=== PATIENT | male | born 1945 | race African-American/Black ===

== ENCOUNTER 2019-05-21 12:40 | Inpatient (IN) | payer OTHER ==
[~2019-05-21] VITALS: Ht 172.7 cm; Wt 54.0 kg
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
[2019-05-21 12:41] VITALS: BP 136/82
[2019-05-21] MEDS ORDERED: TYLENOL325 MG PO (12:51)
[2019-05-21] MEDS ORDERED: LIPITOR40 MG PO (12:54)
[2019-05-21] MEDS ORDERED: ASPIR 8181 M1 PO (12:54)
[2019-05-21] MEDS ORDERED: LORCET 5-325 M1 EACH PO (12:55)
[2019-05-21] MEDS ORDERED: CARAFATE1 GM/10 ML PO (12:55)
[2019-05-21] MEDS ORDERED: CARVEDILOL12.5 MG PO (12:55)
[2019-05-21] MEDS ORDERED: UNICOMPLEX M TA1 TA1 PO (12:56)
[2019-05-21] MEDS ORDERED: NIFEDIPINE ER30 M1 PO (12:58)
[2019-05-21] MEDS ORDERED: MIRALAX119 GM PO (12:59)
[2019-05-21] MEDS ORDERED: RENVELA0.8 GM PO (12:59)
[2019-05-21] MEDS ORDERED: ROBITUSSIN15 MG/5 ML PO (13:01)
[2019-05-21] MEDS ORDERED: SENNA PLUS 8.61 EACH PO (13:02)
[2019-05-21 13:12] LABS: ABSOLUTE NEUTROPHILS 9.2 thou/uL (1.4-8.2); BASOPHILS 1.5 % (0.0-2.0); EOSINOPHILS 3.8 % (0.0-3.0); HEMATOCRIT 34.9 % (42.0-52.0); HEMOGLOBIN 11.2 gm/dL (14.0-18.0); LYMPHOCYTES 6.8 % (24.0-44.0); MCH 29.4 pg (26.0-34.0); MCHC 32.2 g/dL (28.0-37.0); MCV 91.3 fL (80.0-100.0); MONOCYTES 6.7 % (1.0-8.0); PLATELET COUNT 207 thou/uL (150-400); POLYS 81.2 % (36.0-66.0); RBC 3.82 mil/uL (4.50-6.00); RDW 19.5 % (10.5-14.5); WBC 11.3 thou/uL (4.0-11.0)
[2019-05-21 14:32] LABS: CALCIUM 9.2 mg/dL (8.5-10.1); CREATININE 9.2 mg/dL (0.7-1.3); POTASSIUM 3.8 mmol/L (3.5-5.1)
[2019-05-21 14:44] LABS: ALBUMIN 3.2 g/dL (3.4-5.0); MAGNESIUM 1.7 mg/dL (1.8-2.4); TOTAL BILIRUBIN 0.6 mg/dL (<0.1-1.0); TOTAL PROTEIN 7.6 g/dL (6.4-8.2); TROPONIN-I 0.08 ng/mL (<0.06)
[2019-05-21 15:18] LABS: URINE BILIRUBIN NEGATIVE (Negative); URINE BLOOD 1+ (Negative); URINE CLARITY CLEAR; URINE COLOR YELLOW; URINE GLUCOSE-RANDOM* TRACE (Negative); URINE KETONES NEGATIVE (Negative); URINE LEUKOCYTES-REFLEX NEGATIVE (Negative); URINE NITRITE-REFLEX NEGATIVE (Negative); URINE PROTEIN (DIPSTICK) 2+ (Negative); URINE UROBILINOGEN 0.2 E.U./dl (0.2-1.0)
[2019-05-21 15:22] LABS: ANISOCYTOSIS 2+
[2019-05-21 15:23] LABS: TARGET CELLS FEW
[2019-05-21 15:29] LABS: BACTERIA-REFLEX None Seen /HPF (None Seen); CASTS None Seen /LPF (None Seen); CRYSTALS None Seen /LPF (None Seen); SQUAMOUS 4-10 Moderate /LPF (0-3); URINE RBC 3-10 Few /HPF (0-2); URINE WBC-REFLEX 0-5 Rare /HPF (0-5)
[2019-05-21 15:30] LABS: RENAL EPITHELIAL CELLS 4-10 Moderate /LPF (None Seen); TRANSITIONAL EPITHEL CELL 4-10 Moderate /LPF (None Seen)
[2019-05-21 16:13] VITALS: BP 126/83
[2019-05-21 16:15] LABS: ALBUMIN 3.3 g/dL (3.4-5.0); TOTAL PROTEIN 7.8 g/dL (6.4-8.2); TROPONIN-I 0.08 ng/mL (<0.06)
[2019-05-21 16:27] VITALS: BP 126/83
[2019-05-21 16:38] LABS: TSH 3.851 uIU/mL (0.358-3.740)
[2019-05-21 16:49] VITALS: BP 164/94
--- NOTE | 2019-05-21 18:35 | NUR ---
ASSUMED CARE AT 1700, SHIFT ASSESMENT DONE, MEDS GIVEN, VSS. DENIES PAIN, NAUSEA, VOMITING. ADMISSION DONE, VSS. BP MEDS GIVEN. NSR ON TELE, ON 2L NC. CONSULTS CALLED, WILL CONTINUE TO ASSESS AND ASSIST WITH ADLs NEEDED.
[2019-05-21 19:47] VITALS: BP 157/86
--- NOTE | 2019-05-22 | NUR ---
PT AWAKE RESTING QUIETLY DENIES PAIN NOR DISCOMFORT. LEFT RADIAL DIALYSIS SHUNT. SLEEPINBG AT INTERVALS.
[2019-05-22 05:02] VITALS: BP 191/111
--- NOTE | 2019-05-22 05:45 | NUR ---
SBP 192/111 AUTOMATION ENGINEERING MANAGER Madelin JIMENEZ NOTIFIED LEFT ORDERS TO GIVE AM DOSES OF CORAG AND NIFEDIPINE EARLY. WILL CONT TO MONITOR.
--- NOTE | 2019-05-22 05:47 | NUR ---
SBP 212/111 AUTOCAD DESIGNER VALARIE NOTIFIED. LEFT ORDERS TO GIVE AM DOSES OF NIFEDIPINE AND CORAG EARLY. WILL CONT TO MONITOR
--- NOTE | 2019-05-22 07:00 | NUR ---
SBP 216/117 ROLLS BAKER NOTIFIED AND LEFT ORDERS FOR HYDRALZINE 10 MG IV NOW WILL CONT TO MONITOR. S/C FOR HEMODIALYSIS TODAY. ANURIC. DENIES PAIN NOR SOA. WILL CONT TO MONITOR.
--- NOTE | 2019-05-22 07:51 | EKG ---
[address] [place] [address] ELECTROCARDIOGRAM REPORT Name: RUTHY KISER Room #: 218-P ADM IN M.R.#: [id number] Admission: 05/21/19 Attend Phys: Osvaldo Talbert MD Discharge: Date of : 47 Report #: [id number] THIS REPORT FOR: //name// [facility] ED Test Date: 2019-05-21 Test Time: 12:53:16 Pat Name: RUTHY KISER Department: Room: 218 Gender: M Supervisor Data Processing: [facility] : 1945 Requested By: Nadine Pichardo Order Number: [id number] MD: Mic Munguia Measurements Intervals [place] Rate: 76 P: 11 OK: 122 QRS: 14 QRSD: 78 T: 169 QT: 443 QTc: 499 Interpretive Statements Sinus rhythm Abnormal T, consider ischemia, lateral leads No previous ECG available for comparison Electronically Signed On 05-22-2019 7:51:33 PLATFORM MATERIAL HANDLING SUPERVISOR by Mic Munguia [email or web address] <ELECTRONICALLY SIGNED> By: Mic Munguia MD, [facility] 05/22/19 [id number] Mic Munguia MD, FACC /EPI
[2019-05-22 08:27] VITALS: BP 207/119
--- NOTE | 2019-05-22 09:23 | 2DMMODE ---
[facility] [place] [address] 2 D/M-MODE ECHOCARDIOGRAM Name: RUTHY KISER Room #: 218-P [facility] IN ..#: [id number] Admission: 05/21/19 Attend Phys: Osvaldo Talbert, Discharge: Date of : 47 Report #: [id number] THIS REPORT FOR: //name// APPROVED REPORT Study performed: 05/22/2019 08:37:55 EXAM: Comprehensive 2D, Doppler, and color-flow Echocardiogram Patient Location: Bedside Room #: 218 Status: routine BSA: 1.76 HR: 98 bpm BP: 216/117 mmHg Rhythm: NSR Other Information Study Quality: Good/unable to position patient due to dialysis. Indications Syncope, elevated troponin. Hx: [place], cardiac arrest, CHF, HTN, ESRD. 2D Dimensions RVDd: 37.73 mm IVSd: 13.00 (7-11mm) LVOT Diam: 18.92 (18-24mm) LVDd: 44.00 mm PWd: 14.08 (7-11mm) Ascending Ao: 30.27 (22-36mm) LVDs: 34.79 (25-40mm) Aortic Root: 31.54 mm Volumes Left Atrial Volume (Systole) Single Plane 4CH: 84.28 mL Single Plane 2CH: 77.73 mL LA ESV Index: 49.00 mL/m2 Aortic Valve AoV Peak Kemar.: 1.77 m/s AO Peak Gr.: 12.53 mmHg LVOT Max P.35 mmHg LVOT Max V: 1.26 m/s PANCHO Vmax: 2.00 cm2 Mitral Valve E/A Ratio: 1.1 [facility] [place] [address] 2 D/M-MODE ECHOCARDIOGRAM Name: RUTHY KISER Room #: 218-[facility] IN [facility]#: [id number] Admission: 05/21/19 Attend Phys: Osvaldo Talbert, Discharge: Date of : 47 Report #: [id number] MV Decel. Time: 158.97 ms MV E Max Kemar.: 1.31 m/s MV A Kemar.: 1.15 m/s MV PHT: 46.10 ms IVRT: 96.89 ms Pulmonary Valve PV Peak Kemar.: 0.94 m/s PV Peak Gr.: 3.53 mmHg Pulmonary Vein P Vein S: 0.62 m/s P Vein A: 0.30 m/s P Vein D: 0.48 m/s P Vein A Dur.: 103.8 msec P Vein S/D Ratio: 1.29 Tricuspid Valve TR Peak Kemar.: 3.54 m/s RAP Estimate: 5.00 mmHg TR Peak Gr.: 50.26 mmHg PA Pressure: 55.00 mmHg Left Ventricle The left ventricle is normal size. Regional wall motion abnormalities are noted. Moderate concentric left ventricular hypertrophy. Left ventricular systolic function is mildly decreased. LVEF is 45-50%. Moderate diastolic dysfunction is present (pseudonormal filling). Right Ventricle The right ventricle is normal size. The right ventricular systolic function is normal. Atria Left atrium is moderately dilated. The right atrium size is normal. Aortic Valve The aortic valve is normal in structure; mildly thickened and calcified. No aortic regurgitation is present. There is no aortic valvular stenosis. Mitral Valve The mitral valve is normal in structure. Leaflets are mildly thickened. Mild to moderate mitral regurgitation. No evidence of mitral valve stenosis. Tricuspid Valve The tricuspid valve is normal in structure. Trace to [place] [address] 2 D/M-MODE ECHOCARDIOGRAM Name: RUTHY KISER Room #: 218-P [facility] IN ..#: [id number] Admission: 05/21/19 Attend Phys: Osvaldo Talbert, Discharge: Date of : 47 Report #: [id number] regurgitation. Estimated PAP is 55mmHg. Pulmonic Valve The pulmonary valve is normal in structure. Mild pulmonic regurgitation. Great Vessels The aortic root is normal in size. The ascending aorta is normal in size. IVC is normal in size and collapses >50% with inspiration. Pericardium There is no pericardial effusion. <Conclusion> The left ventricle is normal size. Moderate concentric left ventricular hypertrophy. Left ventricular systolic function is mildly decreased. LVEF is 45-50%. Moderate diastolic dysfunction is present (pseudonormal filling). The right ventricle is normal size. Left atrium is moderately dilated. The aortic valve is normal in structure; mildly thickened and calcified. Mild to moderate mitral regurgitation. Trace to mild tricuspid regurgitation. Estimated PAP is 55mmHg. <ELECTRONICALLY SIGNED> By: Petey Sargent MD 05/22/19922 2 2 Petey Sargent MD /INF
--- NOTE | 2019-05-22 09:38 | NUR ---
INITIAL ASSESSMENT: Pt evaluated for d/c planning needs. Reviewed chart and spoke with credentialing coordinator at facility. Pt is a continuous churn buttermaker care resident at [facility] and has dialysis M-W-F at [facility]. Pt uses cane for w/c for ambulation. Pt is normally alert and oriented to self and place. Plan is for pt to return to [facility] on d/c from hospital. Will remain available to assist as needed.
--- NOTE | 2019-05-22 13:03 | NUR ---
FAXED CLINICAL UPDATE TO [facility] RECEIVED CONFIRMATION AND SPOKE WITH CARMEN IN ADM. DP TO FOLLOW.
[2019-05-22 15:58] LABS: HEMATOCRIT 34.8 % (42.0-52.0); HEMOGLOBIN 11.2 gm/dL (14.0-18.0); MCH 29.5 pg (26.0-34.0); MCHC 32.3 g/dL (28.0-37.0); MCV 91.4 fL (80.0-100.0); RBC 3.81 mil/uL (4.50-6.00); RDW 18.9 % (10.5-14.5); WBC 8.5 thou/uL (4.0-11.0)
[2019-05-22 16:00] VITALS: BP 145/70
[2019-05-22 16:31] LABS: CALCIUM 9.1 mg/dL (8.5-10.1); MAGNESIUM 1.8 mg/dL (1.8-2.4); POTASSIUM 3.2 mmol/L (3.5-5.1); TROPONIN-I 0.06 ng/mL (<0.06)
[2019-05-22 16:32] LABS: CREATININE 5.1 mg/dL (0.7-1.3)
[2019-05-22 20:17] VITALS: BP 169/117
[2019-05-23] VITALS (8 sets, daily range): BP systolic 122–190; BP diastolic 64–111
--- NOTE | 2019-05-23 04:45 | NUR ---
ASSUMED PT CARE AT 1900. PT IS ALERT AND ORIENTED. SON AT BEDSIDE. NO SIGN OF DISTRESS NOTED IN PT. PT IS LAYING COMFORTABLE IN BED. FALL PPRECAUTION IN PLACE. ASSESSMENT COMPLETED AND DOCUMENTED. ELEVATED BLOOD PRESSURE NOTED ON VITAL SIGNS. PT IS STABLE. SCHEDULED MEDS ADMINISTERED TO PT. PT TOLERATED PO INTAKE. CONTINUE TO MONITOR. DENIES ANY NEEDS AT THIS TIME.
--- NOTE | 2019-05-23 13:20 | NUR ---
Spoke with [facility] admissions. Facility wants to cont therapy believe patient would benefit from therapy paulo as he has a pass often to home. Plan fax updated information.
--- NOTE | 2019-05-23 16:28 | NUR ---
FAXED REFERRAL TO [facility] FOR SKILLED STAY. SPOKE WITH CARMEN IN ADM SHE RECEIVED REFERRAL AND WILL SUBMIT FOR AUTH. DP TO FOLLOW.
--- NOTE | 2019-05-23 16:38 | NUR ---
ASSUMMED PT CARE AT APPROXIMATELY 0700. PT A&O X4. ASSESMENT CHARTED. FALL PRECAUTIONS IN PLACE. PT DENIES HAVING CHEST PAIN. PT DENIES HAVING SOB. PT DENIES HAVING ACUTE PAIN. PT AND PT'S FAMILY EDUCATED ABOUT POC. PT AND PT'S FAMILY STATED UNDERSTANDING AND DENIED HAVING FURTHER QUESTIONS. PT STATED HE WAS NAUSEATED. PT RECEIVED ANTI-EMETICS. PT STATED HIS NAUSEA WAS RELEIVED. DR NOTIFIED OF PT HAVING A LOW GRADE FEVER. DR STATED TO CONTINUE TO MONITOR. NOTIFIED DR OF LOW K+ LEVEL. DR STATED TO CONTINUE TO MONITOR. VITAL SIGNS STABLE. PT COMFORTABLE IN BED. PT DENIES HAVING FURTHER CONCERNS.
--- NOTE | 2019-05-24 04:27 | NUR ---
ASSUMED PT CARE AT 1900. PT IS AWAKE. NO SIGN OF DISTRESS NOTED IN PT. NO FAMILY AT BEDSIDE. FALL PRECAUTION IN PLACE. ASSESSMENT COMPLETED AND DOCUMENTED. VITAL SIGNS STABLE. SCHEDULED MEDS ADMINISTERED TO PT. DENIES ANY PAIN. NO FURTHER NEEDS REQUESTED AT THIS TIME. CONTINUE TO MONITOR.
[2019-05-24 04:45] VITALS: BP 148/83
[2019-05-24 08:01] VITALS: BP 162/85
--- NOTE | 2019-05-24 10:17 | NUR ---
ORIENTED TO SELF AND PLACE. CALM, COOPERATIVE. DIALYSIS UNDERWAY. HOLDING A.M. MEDS PENDING DIALYSIS COMPLETION. SR PER TELE. FALL PRECAUTIONS IN PLACE. A.M. MEDS HELD PENDING DIALYSIS COMPLETION. WILL CONTINUE TO FOLLOW CLOSELY.
[2019-05-24 16:21] VITALS: BP 162/85
--- NOTE | 2019-05-24 16:32 | NUR ---
Spoke with admissions at [facility]. They have rec'd ins auth for snf stay and can accept the pt today. The attending and nursing notified. [facility] does not have a w/c feeder driver today. W/c van arranged through [facility] for 5:30-6pm pickup. Unit notified along with the pt. Dc marketing planner called his son Chris and he will meet him out there. Pt to resume his normally dialysis schedule. Dc marketing planner faxed the summary and instructions to admissions. Chart copy in progress to be sent with the pt. Nursing to call report. Pt to be skilled for therapy.
== END 2019-05-24 17:11 | DRG 291 ==
LOC: ER 12:40 → 2N 16:09
PROVIDERS: Nurse Practitioner Family; ADMIT Internal Medicine
PROC: 5A1D70Z Performance of Urinary Filtration, Intermittent, Less than 6 Hours Per Day (ICD-10-PCS; principal; 2019-05-24)
DX: I13.2 Hypertensive heart and chronic kidney disease with heart failure and with stage 5 chronic kidney disease, or end stage renal disease (principal); N18.6 End stage renal disease; I50.43 Acute on chronic combined systolic (congestive) and diastolic (congestive) heart failure; I16.0 Hypertensive urgency; I25.10 Atherosclerotic heart disease of native coronary artery without angina pectoris; E78.5 Hyperlipidemia, unspecified; I25.5 Ischemic cardiomyopathy; R00.1 Bradycardia, unspecified; E07.81 Sick-euthyroid syndrome; K59.09 Other constipation; I25.2 Old myocardial infarction; Z79.82 Long term (current) use of aspirin; Z79.899 Other long term (current) drug therapy; Z95.5 Presence of coronary angioplasty implant and graft; Z91.15 Patient's noncompliance with renal dialysis
CPT/HCPCS: 10081; 32100

== ENCOUNTER 2019-06-19 10:30 | Inpatient (IN) | payer OTHER ==
[2019-06-19] VITALS (54 sets, daily range): BP systolic 75–235; BP diastolic 48–150
[~2019-06-19] VITALS: Ht 170.2 cm; Wt 44.5 kg
[~2019-06-19 10:30] MED LIST: ASPIR 8181 M1 PO; CARAFATE1 GM/10 ML PO; CARVEDILOL12.5 MG PO; LIPITOR40 MG PO; LORCET 5-325 M1 EACH PO; MIRALAX119 GM PO; NIFEDIPINE ER30 M1 PO; RENVELA0.8 GM PO; ROBITUSSIN15 MG/5 ML PO; SENNA PLUS 8.61 EACH PO; TYLENOL325 MG PO; UNICOMPLEX M TA1 TA1 PO
[2019-06-19 11:16] LABS: ABSOLUTE NEUTROPHILS 10.2 thou/uL (1.4-8.2); BASOPHILS 0.7 % (0.0-2.0); EOSINOPHILS 0.1 % (0.0-3.0); HEMATOCRIT 43.7 % (42.0-52.0); MCH 30.5 pg (26.0-34.0); MCV 95.4 fL (80.0-100.0); PLATELET COUNT 180 thou/uL (150-400); POLYS 88.2 % (36.0-66.0); RBC 4.58 mil/uL (4.50-6.00); WBC 11.6 thou/uL (4.0-11.0)
[2019-06-19 12:09] LABS: CALCIUM 10.4 mg/dL (8.5-10.1); CREATININE 11.7 mg/dL (0.7-1.3)
[2019-06-19 12:17] LABS: POTASSIUM 6.1 mmol/L (3.5-5.1)
[2019-06-19 12:22] LABS: ANISOCYTOSIS 1+; PLATELET ESTIMATE NORMAL
[2019-06-19 15:03] LABS: BE(vivo) -5.5 mmol/L (-2 to +3); HCO3 17.9 mmol/L (22.0-26.0); PCO2 28.9 mmHg (35.0-45.0); PO2 69.4 mmHg (80.0-100.0); pH 7.409 (7.360-7.450); sO2 94.4 % (92.0-98.0)
--- NOTE | 2019-06-19 17:06 | NUR ---
PT ARRIVED FROM ER AT 1535. PT WAS ON NC AND WAS VERY TACHYPNEIC UPON ARRIVAL TO ICU WITH R >40. PT'S HR WAS 120'S ON ARRIVAL AND B/P WAS >200 SYSTOLIC. PT WAS IMMEDIATELY PLACED ON BIPAP. PT IS VERY AGITATED ON BIPAP ON PULLING CONSTANTLY AT MASK. ORDERS RECIEVED FOR BILAT SOFT WRIST RESTRAINTS. DIALYSIS NURSE AT BEDSIDE AND UNABLE TO START DIALYSIS DUE TO AGITAION. DIALYSIS STARTED AT 1545 AND AT 1602 1 MG IV ATIVAN GIVEN PER DR ORDER. PT CONTINUED TO BREATH >40 BREATHS PER MINUTE AND O2 SAT DROPPED FROM 94% TO 60-70%. DR CALLED AND PULMONARY PHYSICIAN STAT CONSULTED AND PAGED, BIPAP FIO2 INCREASED TO 100%. HOSPITALIST CALLED AND ORDER RECEIVED FROM 5MG IV LOPRESSOR. PULMONARY PHYSICIAN ROUNDED BEDSIDE ON PT AND STATED DUE TO PT'S HISTORY OF BLOOD PRESSURE RAPIDLY DROPPING DURING DIALYSIS TO HOLD ON GIVING IV LOPRESSOR UNTIL WE SEE HOW THE PATIENT WILL RESPOND TO DIALYSIS. PT'S SPO2 96% ON BIPAP WITH FIO2 100%. PT STARTED TO BECOME ANXIOUS AND AGITATED AGAIN AND DIALYSIS NURSE STATED HE NEEDS MORE ATIVAN BECAUSE HE IS BEGINNING TO PULL AT MASK AND WILL NOT KEEP L DIALYSIS ARM STRAIGHT. PULMONARY PHYSICIAN ROUNDED AGAIN ON PT AND STATED PT NEEDS TO BE INTUBATED.
[2019-06-19 19:35] LABS: BE(vivo) -1.4 mmol/L (-2 to +3); HCO3 21.6 mmol/L (22.0-26.0); PCO2 31.4 mmHg (35.0-45.0); PO2 103.9 mmHg (80.0-100.0); pH 7.455 (7.360-7.450); sO2 98.1 % (92.0-98.0)
--- NOTE | 2019-06-19 19:58 | NUR ---
CHEST XRAY RESULT POST RIJ CATHETER PLACEMENT RESULTED IN CATHETER TIP IN [facility]. CATHETER PULLED BACK POST CHEST XRAY 2.5 CM WITH INTERNAL NOW 17 CM. RELEASE FOR USE PER PROTOCOL.
[2019-06-20] VITALS (52 sets, daily range): BP systolic 67–128; BP diastolic 33–79
[2019-06-20 04:59] LABS: BE(vivo) -1.6 mmol/L (-2 to +3); HCO3 22.6 mmol/L (22.0-26.0); PCO2 36.2 mmHg (35.0-45.0); PO2 127.6 mmHg (80.0-100.0); pH 7.413 (7.360-7.450); sO2 98.6 % (92.0-98.0)
[2019-06-20 05:10] LABS: ABSOLUTE NEUTROPHILS 10.7 thou/uL (1.4-8.2); BASOPHILS 0.4 % (0.0-2.0); HEMATOCRIT 35.9 % (42.0-52.0); LYMPHOCYTES 2.3 % (24.0-44.0); MCH 30.6 pg (26.0-34.0); MCV 95.5 fL (80.0-100.0); MONOCYTES 5.5 % (1.0-8.0); PLATELET COUNT 119 thou/uL (150-400); POLYS 91.8 % (36.0-66.0); RBC 3.76 mil/uL (4.50-6.00); WBC 11.7 thou/uL (4.0-11.0)
[2019-06-20 05:18] LABS: HEMOGLOBIN 11.5 gm/dL (14.0-18.0)
[2019-06-20 05:19] LABS: CALCIUM 9.5 mg/dL (8.5-10.1); MAGNESIUM 1.6 mg/dL (1.8-2.4)
[2019-06-20 05:31] LABS: CREATININE 9.8 mg/dL (0.7-1.3); POTASSIUM 4.2 mmol/L (3.5-5.1)
--- NOTE | 2019-06-20 06:34 | NUR ---
PATIENT ON MODERATE SEDATION, VENTILATOR 65% FIO2, 100% O2 SAT. PROPOFOL WEANED TO 30 MCG/KG/HR. ROCHA AND OG TUBE INSERTED. PATIENT COMPLETED DIALYSIS OVER NIGHT WHERE 4 LITERS WERE TAKEN OFF. THERE WAS A 5 POUND WEIGHT DECRESE FROM ADMISSION. PLAN OF CARE DISCUSSED WITH SON, VERBALIZED UNDERSTANDING. NO SIGN OF ACUTE DISTRESS NOTED AT THIS TIME. WILL CONTINUE TO MONITOR.
--- NOTE | 2019-06-20 08:27 | EKG ---
[place] [address] [employer] [facility] [place] [address] ELECTROCARDIOGRAM REPORT Name: RUTHY KISER Room #: 241-P ADM IN .R.#: [id number] Admission: 06/19/19 Attend Phys: Ronnie Bal MD Discharge: Date of : 47 Report #: [id number] THIS REPORT FOR: //name// [facility] ED Test Date: 2019-06-19 Test Time: 10:52:37 Pat Name: RUTHY KISER Department: Room: 241 Gender: M Manager Of Environmental Services: ZAC : 1945 Requested By: Ted Mcnamara Order Number: [id number] MD: Mic Munguia Measurements Intervals [place] Rate: 105 P: 34 AL: 113 QRS: 29 QRSD: 74 T: 88 QT: 381 QTc: 504 Interpretive Statements Sinus tachycardia Nonspecific T abnormalities, lateral leads Prolonged QT interval Compared to ECG 05/21/2019 12:53:16 T-wave abnormality less prominent Electronically Signed On 06-20-2019 8:26:49 SHELLFISH WEIGHER by Mic Munguia [email or web address] <ELECTRONICALLY SIGNED> By: Mic Munguia MD, [facility] 06/20/19 0826 1052 105 Mic Munguia MD, [facility] /EPI
--- NOTE | 2019-06-20 09:59 | NUR ---
CM ASSESSMENT: CASE OPENED FOR DC PLANNING. PT ADMITS WITH RESP FAILURE AND ON VENT. SEDATED WITH PROPOFOL AT PRESENT. PT'S SON/DPOA MARYAM AT BEDSIDE. PT LIVES IN LTC AT [place] AND DIALYZES M-W- AT [facility]. PT AMBULATES WITH CANE AND IS ABLE TO CHANGE HIS OWN BRIEF PER SON. SON STATES GOAL TO RETURN BACK TO [place] WHEN MEDICALLY STABLE. NOTIFIED CARMEN IN ADMISSIONS AND REQUESTED COPY OF DPOA DOCUMENT BE FAXED TO CM. REQUESTED DC PLASTIC ROLLER FAX H&P TO FACILITY ADMISSIONS AND ALSO NOTIFY [facility].
[2019-06-20 18:11] LABS: HEP B SURFACE Ab(ANTI-HBS Reactive (()); HEPATITIS B SURFACE AG Negative (Negative)
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
[2019-06-21] VITALS (61 sets, daily range): BP systolic 77–161; BP diastolic 50–92
[2019-06-21 05:21] LABS: HEMATOCRIT 36.2 % (42.0-52.0); HEMOGLOBIN 11.4 gm/dL (14.0-18.0); MCH 30.1 pg (26.0-34.0); MCHC 31.7 g/dL (28.0-37.0); RBC 3.81 mil/uL (4.50-6.00); RDW 19.5 % (10.5-14.5); WBC 12.2 thou/uL (4.0-11.0)
[2019-06-21 05:58] LABS: ALBUMIN 4.3 g/dL (3.4-5.0); CALCIUM 9.7 mg/dL (8.5-10.1); POTASSIUM 5.2 mmol/L (3.5-5.1); TOTAL PROTEIN 9.1 g/dL (6.4-8.2)
[2019-06-21 06:12] LABS: CREATININE 7.5 mg/dL (0.7-1.3)
--- NOTE | 2019-06-21 06:28 | NUR ---
PATIENT ON LIGHT SEDATION, IS NOT ALERT TO FOLLOW COMMANDS BUT WITHDRAWS TO PAIN AND GRIMACE WITH MOVEMENT. VENTILATOR 40% FIO2, OXYGEN SATURATION REMAINED ABOVE 92%. PROPOFOL DECREASED, NO SIGN OF RESPIRATORY DISTRESS, RESPIRATIONS REMAINS IN 20S. SINUS TACHYCARDIA ON CREATIVE LEAD. DIALYSIS COMPLETED 06/20/19, THERE IS A 5 POUND WEIGHT DECREASE THIS MORNING. PATIENT SLOWLY PROGRESSING TOWARDS GOAL. PLAN OF CARE DISCUSSED WITH SON AND DAUGHTER. NO SIGN OF ACUTE DISTRESS NOTED AT THIS TIME. WILL CONTINUE TO MONITOR.
--- NOTE | 2019-06-21 09:20 | NUR ---
ASSUMED CARE AT 0700. SEDATION TURNED OFF AT 0735. PT IS NOT RESPONDING TO VERBAL COMMANDS WITH VERY SLIGHT GRIMACING TO PAIN. SON ARRIVED AT 0800 AND IS BEDSIDE. SON HAD LOTS OF QUESTIONS ABOUT PT'S CARE AND DR GAONA ADDRESSED PT'S QUESTIONS. DIALYSIS IS SCHEDULED FOR THIS AM. ALBUMIN GIVEN PRIOR TO DIALYSIS ORDERED. SEDATION REMAINS OFF AND WE WILL REASSESS NEED ONCE PT FULLY AWAKENS. HR [address] BP 117/76, O2 100% PT REMAINS VENTILATED.
--- NOTE | 2019-06-21 14:19 | NUR ---
FAXED CLINICAL UPDATE TO [facility] SPOKE WITH CARMEN IN ADM SHE RECEIVED UPDATE AND WILL DO A BEDSIDE VISIT TODAY. DP TO FOLLOW.
--- NOTE | 2019-06-21 17:37 | NUR ---
PT REMAINED VENTED THIS SHIFT. PT HAD APPROXIMATELY 3L OFF DURING DIALYSIS. PT'S BLOOD PRESSURE BEGAN TO DROP DURING DIALYSIS AND LEVOPHED GTT STARTED FOR BLOOD PRESSURE SUPPORT. ROCHA CATHETER REMOVED THIS SHIFT DUE TO VERY MINIMAL URINE OUTPUT. PT ONLY HAD 5 CC OF URINE THIS SHIFT AND 5 CC OF URINE PRIOR SHIFT. SEDATION HAS REMAINED OFF THIS ENTIRE SHIFT.
[2019-06-22] VITALS (25 sets, daily range): BP systolic 90–138; BP diastolic 59–79
--- NOTE | 2019-06-22 03:17 | NUR ---
ASSUMED CARE OF PATIENT AT 1900. REMAINS TACHYCARDIC. LEVOPHED INFUSING TO SUSTAIN BP. SON CALLED TWICE. UPDATE GIVEN, ALL QUESTIONS ANSWERED. VERBALIZED UNDERSTANDING. PLANS FOR ULTRAFILTRATION TODAY. REMAINS UNRESPONSIVE AND OFF OF SEDATION. NOT PROGRESSING TOWADS POC GOALS.
--- NOTE | 2019-06-22 08:35 | HC ---
[facility] [place] [address] CONSULTATION Name: RUTHY KISER JR Room #: 241-P ADM IN .R.#: [id number] Admission: 06/19/19 Attend Phys: Ronnie Bal MD Discharge: Date of : 47 Report #: [id number] THIS REPORT FOR: //name// CC: Ronnie Bal Leyla Sanderson DATE OF SERVICE: 06/20/2019 REASON FOR CONSULTATION: End-stage renal disease. REASON FOR THE PRESENTATION: This is obtained from the medical chart because of the patient's current condition. He is not able to provide me with the details of his history. He was brought from his dialysis unit nursing facility with tachycardia and mental status issues. The patient is maintained on dialysis every Wednesday, Wednesday and Wednesday. Family members related to the ER staff and to my dialysis nurse that the patient dialysis treatment has been terminated on many occasions prematurely. The patient on presentation was on the extreme hypertensive side. He was also in pulmonary edema and required emergent dialysis. Because of his pulmonary edema and worsening pulmonary status, the patient required intubation and was moved to the ICU. I have evaluated this patient during his previous hospitalization. He is known to have systolic and diastolic dysfunction. He dialyzed yesterday with significant improvement in his pulmonary edema and hyperkalemia. PAST MEDICAL HISTORY: Extensive and includes the followin. Cardiomyopathy. 2. End-stage renal disease, maintained on hemodialysis. 3. Noncompliance. 4. Hypertension. 5. Remote history of cardiac arrest. MEDICATIONS: 1. Aspirin. 2. Atorvastatin. 3. Carvedilol. 4. Nifedipine. 5. Sevelamer. SOCIAL HISTORY: Resides in a nursing facility. Other parts of the history unobtainable. FAMILY HISTORY: Unobtainable given the patient's medical status. ALLERGIES: None. REVIEW OF SYSTEMS: Unobtainable given the patient's current mental status. [facility] [address] [place] [address] CONSULTATION Name: RUTHY KISER JR Room #: 241-P [facility]#: [id number] Admission: 06/19/19 Attend Phys: Ronnie Bal MD Discharge: Date of : 47 Report #: [id number] PHYSICAL EXAMINATION: GENERAL: The patient is currently intubated on the hypotensive side. VITAL SIGNS: Blood pressure is 98/66. HEAD AND NECK: ET tube in place. CHEST: Decreased air entry bilaterally with crackles. CARDIOVASCULAR: No rub detected. ABDOMEN: Soft, nontender. LOWER EXTREMITIES: No edema. LABORATORY DATA: Reviewed. White blood cell count is 11.7. Sodium is 137, potassium is 4.2, BUN is 44, and creatinine is 9.8. His potassium yesterday was 6.1. Calcium is 10.4. Magnesium is 1.6. IMPRESSION AND PLAN: 1. Acute respiratory failure due to pulmonary edema. 2. End-stage renal disease with noncompliance. 3. Hypertensive urgency. 4. Hyperkalemia. 5. Emergent dialysis was done yesterday. 6. Another dialysis treatment will be done today. 7. Aggressive ultrafiltration with each dialysis. 8. Fluid restriction. 9. Need to residential youth counselor the patient about compliance with the dialysis regimen. <ELECTRONICALLY SIGNED> By: Glen Flowers MD 06/22/19 0835 0802 1050 Glen Flowers MD /nt
--- NOTE | 2019-06-22 19:52 | NUR ---
ASSESSMENTS AND INTERVENTIONS DOCCUMENTED. PATIENT UNRESPONSIVE THROUGH OUT THE SHIFT. PATIENT HAVING DIALYSIS THROUGH OUT THE AFTERNOON. TOWARDS 181 PATIENT WENT INTO [facility] AND CODE CALLED. SEE CODE BLUE FLOWSHEET. FAMILY CONTACTED DURING CODE. FAMILY ARRIVING TO UNIT AND DR. LANCE ASKING IF THEY WANTED CPR TO CONTINUE. SON, NEXT OF KIN SAID NO. TIME OF WAS CALLED AT 1907. [facility] CALLED AT 1742 AND REFERAL NUMBER [phone] GIVEN TO RN. FAMILY AT BEDSIDE AT THIS TIME.
== END 2019-06-22 19:07 | DRG 208 ==
LOC: ER 10:30 → EROBS 13:07 → ICU 13:07
PROVIDERS: Emergency Medicine; Hospitalist; Nurse Practitioner; Pediatrics; ADMIT Hospitalist
PROC: 0BH17EZ Insertion of Endotracheal Airway into Trachea, Via Natural or Artificial Opening (ICD-10-PCS; principal; 2019-06-19)
PROC: 5A1945Z Respiratory Ventilation, 24-96 Consecutive Hours (ICD-10-PCS; principal; 2019-06-19)
PROC: 5A09357 Assistance with Respiratory Ventilation, Less than 24 Consecutive Hours, Continuous Positive Airway Pressure (ICD-10-PCS; 2019-06-19)
PROC: 05H533Z Insertion of Infusion Device into Right Subclavian Vein, Percutaneous Approach (ICD-10-PCS; 2019-06-19)
PROC: 5A1D70Z Performance of Urinary Filtration, Intermittent, Less than 6 Hours Per Day (ICD-10-PCS; 2019-06-22)
DX: J96.01 Acute respiratory failure with hypoxia (principal); I50.43 Acute on chronic combined systolic (congestive) and diastolic (congestive) heart failure; N18.6 End stage renal disease; G93.41 Metabolic encephalopathy; N17.9 Acute kidney failure, unspecified; I13.2 Hypertensive heart and chronic kidney disease with heart failure and with stage 5 chronic kidney disease, or end stage renal disease; I42.9 Cardiomyopathy, unspecified; E87.5 Hyperkalemia; I16.0 Hypertensive urgency; I95.9 Hypotension, unspecified; I27.20 Pulmonary hypertension, unspecified; Z91.15 Patient's noncompliance with renal dialysis; Z79.899 Other long term (current) drug therapy; I25.2 Old myocardial infarction; Z79.891 Long term (current) use of opiate analgesic; Z79.82 Long term (current) use of aspirin; Z99.2 Dependence on renal dialysis
CPT/HCPCS: 10078; 10203; 32100